=== PATIENT | male | born 2000 | race Caucasian/White ===

== ENCOUNTER 2020-09-27 13:42 | Emergency (ER) | payer SELFPAY ==
--- NOTE | 2020-09-27 16:18 | Emergency Department Report ---
ED General Adult HPI - General Chief complaint: Skin Rash Stated complaint: RASH ON PENIS Time Seen by Provider: 09/27/20 15:18 Source: patient Mode of arrival: Ambulatory Limitations: No Limitations - History of Present Illness Initial comments: 20-year-old -[place] male patient presents with complaints of itchy rash to the penis x1 month. Patient states the rash began after using Vaseline on his skin. He denies any pain, swelling, testicular swelling/pain, penile discharge, or dysuria. - Related Data Previous Rx's Medication Instructions Recorded Last Taken Type Triamcinolone Acetonide 1 gm TP TID 7 Days #1 oint...g. 09/27/20 Unknown Rx Allergies Allergy/AdvReac Type Severity Reaction Status Date / Time No Known Allergies Allergy Unverified 09/27/20 14:07 ED Review of Systems ROS: Stated complaint: RASH ON PENIS Other details as noted in HPI Constitutional: denies: chills, fever, malaise, weakness Respiratory: denies: shortness of breath Genitourinary: denies: urgency, dysuria, frequency, hematuria, discharge, testicular pain, testicular mass Skin: rash, pruritus. denies: change in color ED Past Medical Hx - Past Medical History Previous Medical History?: No - Surgical History Past Surgical History?: No - Social History Smoking Status: Current Every Day Smoker - Medications Home Medications: Home Medications Medication Instructions Recorded Confirmed Last Taken Type Triamcinolone Acetonide 1 gm TP TID 7 Days #1 oint...g. 09/27/20 Unknown Rx ED Physical Exam - General Limitations: No Limitations General appearance: alert, in no apparent distress - Head Head exam: Present: atraumatic, normocephalic - Eye Eye exam: Present: normal appearance. Absent: scleral icterus - ENT ENT exam: Present: mucous membranes moist - Respiratory Respiratory exam: Absent: respiratory distress - Cardiovascular Cardiovascular Exam: Present: regular rate - External exam: Present: other (Dry patchy rash noted to penile shaft and part of the glans penis without erythema, drainage, or swelling noted; no maceration noted) - Extremities Exam Extremities exam: Present: full ROM - Neurological Exam Neurological exam: Present: alert, oriented X3 - Skin Skin exam: Present: warm, dry, intact, normal color, rash ED Medical Decision Making - Medical Decision Making 20-year-old -[place] male patient presents with complaints of itchy rash to the penis x1 month. Patient states the rash began after using Vaseline on his skin. He denies any pain, swelling, testicular swelling/pain, penile discharge, or dysuria. On exam, rash appears to be consistent with atopic dermatitis. Will treat with triamcinolone for 7 days max. Patient to follow-up with primary care in 3 days. Referral was given. Strict return precautions were discussed in detail patient verbalized understanding peer Critical care attestation.: If time is entered above; I have spent that time in minutes in the direct care of this critically ill patient, excluding procedure time. ED Disposition Clinical Impression: Atopic dermatitis Qualifiers: Atopic dermatitis type: other Qualified Code(s): L20.89 - Other atopic dermatitis; L20.8 - Other atopic dermatitis Disposition: DC-01 TO HOME OR SELFCARE Is pt being admited?: No Condition: Stable Instructions: Atopic Dermatitis Prescriptions: Triamcinolone Acetonide 1 gm TP TID 7 Days #1 oint...g. Referrals: PEGGY GONZALEZ MD [Staff Physician] - 3-5 Days (Rash )
[2020-09-27 16:29] VITALS: BP 120/83
== END 2020-09-27 16:52 | disposition home or self-care (01) ==
LOC: ED 13:42
DX: L20.9 Atopic dermatitis, unspecified (principal); F17.200 Nicotine dependence, unspecified, uncomplicated; Z79.899 Other long term (current) drug therapy
CPT/HCPCS: 99282

== ENCOUNTER 2021-12-10 16:03 | Emergency (ER) | payer OTHER ==
[2021-12-10 16:16] VITALS: BP 135/79
[2021-12-10] MEDS ORDERED: LIDOCAINE-MPF (1%) 10 MG/1 ML VIAL 5 ML INFILTRATI ONE (17:06)
--- NOTE | 2021-12-10 17:06 | Emergency Department Report ---
ED Male HPI - General Chief complaint: Urogenital-Male Stated complaint: BURN WHEN URINE Time Seen by Provider: 12/10/21 16:26 Source: patient Mode of arrival: Ambulatory Limitations: No Limitations - History of Present Illness Initial comments: 21 year old male presents to the ER today with complaints of dysuria. Patient states that symptoms started yesterday. 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 He denies any hematuria or penile discharge. He denies any penile rash or swelling. He denies any testicular pain or swelling. Patient states that he has only one sexual partner but she is an off-and-on partner. He states that she has not reported to him of any symptoms or being positive for STD. He denies history of STDs in the past. He reports no additional symptoms at this time. MD Complaint: dysuria -: days(s) (1) - Related Data Previous Rx's Medication Instructions Recorded Last Taken Type Triamcinolone Acetonide 1 gm TP TID 7 Days #1 oint...g. 09/27/20 Unknown Rx DOXYCYCLINE Hyclate [Vibramycin 100 mg PO Q12HR #14 capsule 12/10/21 Unknown Rx CAP] Allergies Allergy/AdvReac Type Severity Reaction Status Date / Time No Known Allergies Allergy Verified 12/10/21 16:37 ED Review of Systems ROS: Stated complaint: BURN WHEN URINE Other details as noted in HPI Comment: All other systems reviewed and negative Constitutional: denies: chills, fever Eyes: denies: eye pain, eye discharge, vision change ENT: denies: ear pain, throat pain Respiratory: denies: cough, shortness of breath, SOB with exertion, SOB at rest, wheezing Cardiovascular: denies: chest pain, palpitations Gastrointestinal: denies: abdominal pain, nausea, vomiting, diarrhea, constipation, hematemesis, hematochezia Genitourinary: dysuria. denies: urgency, frequency, hematuria, discharge, testicular pain, testicular mass Musculoskeletal: denies: back pain, joint swelling, arthralgia Skin: denies: rash, lesions, change in color, change in hair/nails, pruritus Neurological: denies: headache, weakness, numbness, paresthesias, confusion, abnormal gait, vertigo Psychiatric: denies: anxiety, depression, auditory hallucinations, visual hallucinations, homicidal thoughts, suicidal thoughts Hematological/Lymphatic: denies: easy bleeding, easy bruising, swollen glands ED Past Medical Hx - Social History Smoking Status: Current Every Day Smoker - Medications Home Medications: Home Medications Medication Instructions Recorded Confirmed Last Taken Type Triamcinolone Acetonide 1 gm TP TID 7 Days #1 oint...g. 09/27/20 12/10/21 Unknown Rx DOXYCYCLINE Hyclate [Vibramycin 100 mg PO Q12HR #14 capsule 12/10/21 Unknown Rx CAP] ED Physical Exam - General Limitations: No Limitations General appearance: alert, in no apparent distress - Neck Neck exam: Present: normal inspection, full ROM. Absent: tenderness, meningismus - Respiratory Respiratory exam: Absent: respiratory distress - Cardiovascular Cardiovascular Exam: Present: regular rate - GI/Abdominal GI/Abdominal exam: Present: soft. Absent: distended, tenderness, guarding, rebound - Neurological Exam Neurological exam: Present: alert, oriented X3, CN II-XII intact, normal gait - Psychiatric Psychiatric exam: Present: normal affect, normal mood - Skin Skin exam: Present: intact ED Course Vital Signs 12/10/21 12/10/21 16:14 16:36 Temperature 98.4 F Pulse Rate 84 Respiratory 18 Rate Blood Pressure 135/79 [Right] O2 Sat by Pulse 100 99 Oximetry Critical care attestation.: If time is entered above; I have spent that time in minutes in the direct care of this critically ill patient, excluding procedure time. ED Disposition Clinical Impression: Urethritis Disposition: 01 HOME / SELF CARE / HOMELESS Is pt being admited?: No Does the pt Need Aspirin: No Condition: Stable Instructions: Urethritis, Adult Additional Instructions: I recommend that you increase your water intake. Take the doxycycline as prescribed to completion. To be on the safe side recommend that your partner also get treated for possible gonorrhea chlamydia like you did. You can take Tylenol and ibuprofen for any pain. It is important that you practice safe sex. Follow-up with your primary care doctor. Return to the ER if your symptoms changes or worsens in any way. Prescriptions: DOXYCYCLINE Hyclate [Vibramycin CAP] 100 mg PO Q12HR #14 capsule Referrals: NINA ÁLVAREZ MD [Staff Physician] - 3-5 Days Forms: STI Treatment and Prevention Time of Disposition: 17:21
[2021-12-10 17:09] LABS: Bilirubin,Urine NEG (Negative); Blood,Urine NEG (Negative); Color,Urine Yellow (Yellow); Mucus,Urine FEW /HPF; Protein,Urine <15 mg/dL mg/dL (Negative); WBC,Urine < 1.0 /HPF (0.0-6.0)
== END 2021-12-10 18:06 | disposition home or self-care (01) ==
LOC: ED 16:03
DX: N34.2 Other urethritis (principal); F17.200 Nicotine dependence, unspecified, uncomplicated
CPT/HCPCS: 81001; 96372; 99283; J0696; J3490